=== PATIENT | male | born 1930 | race Caucasian/White ===

== ENCOUNTER → 2018-05-12 | Outpatient (CLI) | payer MEDICARE ==
[~2018-05-12] MED LIST: ATORVASTATIN CA40 MG PO; COUMADIN5 MG PO; METOPROLOL TAR100 MG PO; POTASSIUM CHLO20 ME1 PO; TORSEMIDE20 MG PO
--- NOTE | 2018-05-12 10:03 | Diagnostic Imaging Report ---
PROCEDURE:CHEST 2 VIEWS TECHNIQUE:PA and lateral chest totaling 3 radiographs INDICATION:Hypertensive heart disease; chronic kidney disease. COMPARISON:None. FINDINGS: Blunting of the right costophrenic sulcus. Marked cardiomegaly with postoperative sequela of sternotomy, CABG and valve replacement. Normal central vasculature. Bilateral calcified pleural plaque. Intact skeleton. CONCLUSION: 1. Severe cardiomegaly without pulmonary edema. 2. Right costophrenic angle blunting consistent with pleural thickening. 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 Consider CT chest with contrast to evaluate for right pleural mass/mesothelioma. Differential diagnosis includes loculated pleural effusion or benign pleural thickening. Dictated by: Homer Cowan M.D. on 05/12/2018 at 10:06 Electronically approved by: Homer Cowan M.D. on 05/12/2018 at 10:06
== END ==
LOC: RAD 09:28
PROVIDERS: ATTEND Family Medicine
DX: I48.91 Unspecified atrial fibrillation (principal); I13.0 Hypertensive heart and chronic kidney disease with heart failure and stage 1 through stage 4 chronic kidney disease, or unspecified chronic kidney disease
CPT/HCPCS: 71046

== ENCOUNTER → 2018-05-19 | Outpatient (CLI) | payer MEDICARE ==
[2018-05-19 14:29] LABS: CREATININE, SERUM 1.89 mg/dL (0.72-1.25)
--- NOTE | 2018-05-19 17:42 | Diagnostic Imaging Report ---
EXAM: CT Chest WITHOUT contrast 05/19/2018 1:28 PM INDICATION: Abnormal chest x-ray with concern for right pleural mass/mesothelioma. COMPARISON: None TECHNIQUE: Chest was scanned utilizing a multidetector helical scanner from the lung apex through the level of the adrenal glands without administration of IV contrast. Absence of intravenous contrast decreases sensitivity for detection of lymphadenopathy and vascular pathology. Coronal and sagittal reformations were obtained. Routine protocol was performed. IV CONTRAST: None RADIATION DOSE: Total DLP: 470.31 mGy*cm Estimated effective dose: (DLP x 0.014 x size factor) mSv COMPLICATIONS: None FINDINGS: LINES/ TUBES: None. 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 Maximal thickness including calcification is 4.7 cm at 8:00 position. No evidence of chest wall invasion. Right basilar pleural-parenchymal scarring. PLEURA: Bilateral calcified pleural plaques suggestive of prior cyst versus exposure. HEART AND MEDIASTINUM: The thyroid gland is normal. No mediastinal, hilar or axillary lymphadenopathy. The heart is moderately to markedly enlarged. There is no pericardial effusion. Atherosclerotic calcifications of the thoracic aorta without aneurysmal dilatation. Severe multivessel coronary artery calcification. 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 The central pulmonary arteries are enlarged with the pulmonary trunk measuring 3.7 cm in diameter, suggesting the presence of pulmonary hypertension. UPPER ABDOMEN: Limited non-contrast views of the upper abdomen show atherosclerotic calcifications of the aorta and splenic artery.. The adrenal glands are normal. BONES: Median sternotomy wires. Multilevel degenerative disc disease of the thoracic spine with small Schmorl nodes at some levels. SOFT TISSUES: Unremarkable. IMPRESSION: 1. Findings concerning for mesothelioma in the posterolateral inferior right hemithorax not further characterized due to the lack of contrast. No definite chest wall invasion allowing for limitations of the exam. If renal function permits, consider further evaluation with CT chest mesothelioma protocol. Recommend consultation with thoracic surgery. 2. 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 3. Moderate to marked cardiomegaly. Signed by: Dr. Danielle Michael M.D. on 05/19/2018 5:39 PM
== END | disposition home or self-care (01) ==
LOC: CT 13:12
PROVIDERS: ATTEND Family Medicine
DX: J94.9 Pleural condition, unspecified (principal); J92.0 Pleural plaque with presence of asbestos
CPT/HCPCS: 36415; 71250; 82565; 84520

== ENCOUNTER 2021-05-25 16:25 | Inpatient (IN) | payer MEDICARE ==
[~2021-05-25] VITALS: Ht 182.9 cm; Wt 80.7 kg
[2021-05-25 16:57] LABS: BASOPHILS % 0.3 % (0.0-1.0); EOSINOPHILS # (AUTO) 0.1 (0.0-0.4); EOSINOPHILS % 2.9 % (0.0-6.0); HEMATOCRIT 27.3 % (38.2-49.6); HEMOGLOBIN 8.8 g/dL (14.0-18.0); LYMPHOCYTES # (AUTO) 1.1 (1.0-3.2); LYMPHOCYTES % 33.8 % (18.0-39.1); MEAN CORPUSCULAR HEMOGLOBIN 33.1 pg (28-32); MEAN CORPUSCULAR HGB CONC 32.2 g/dL (31-35); MEAN CORPUSCULAR VOLUME 102.6 fL (81-99); MONOCYTES # (AUTO) 0.1 (0.2-0.8); MONOCYTES % 3.5 % (4.4-11.3); NEUTROPHILS # (AUTO) 1.9 (2.1-6.9); NEUTROPHILS % 58.9 % (38.7-80.0); PLATELET COUNT 140 x10e3/uL (140-360); RED BLOOD COUNT 2.66 x10e6/uL (4.3-5.7); RED CELL DISTRIBUTION WIDTH 14.2 % (11.7-14.4)
[2021-05-25 17:01] LABS: CLARITY,URINE CLEAR (CLEAR); COLOR,URINE YELLOW (YELLOW); KETONES,URINE NEGATIVE (NEGATIVE); LEUKOCYTE ESTERASE ,URINE NEGATIVE (NEGATIVE); NITRITE,URINE NEGATIVE (NEGATIVE); PROTEIN,URINE DIPSTICK NEGATIVE (NEGATIVE); URINE UROBILINOGEN 0.2 mg/dL (0.2 - 1)
[2021-05-25 17:12] LABS: BACTERIA,URINE MANY /HPF
[2021-05-25 17:22] LABS: ALBUMIN 3.6 g/dL (3.5-5.0); ALBUMIN/GLOBULIN RATIO 1.2 (0.8-2.0); ANION GAP 12.8 mmol/L (8-16); CALCIUM 8.9 mg/dL (8.4-10.2); CREATINE KINASE MB 3.4 ng/mL (0-5.0); CREATININE, SERUM 2.83 mg/dL (0.72-1.25)
[2021-05-25 17:28] LABS: POTASSIUM 5.8 mmol/L (3.5-5.1)
[2021-05-25] MEDS ORDERED: ELIQUIS2.5 MG PO (18:01)
[2021-05-25] MEDS ORDERED: ATORVASTATIN CA80 MG PO (18:02)
[2021-05-25] MEDS ORDERED: HYDRALAZINE HCL50 MG (18:02)
[2021-05-25] MEDS ORDERED: METOPROLOL SUC100 MG PO (18:02)
[2021-05-25] MEDS ORDERED: LISINOPRIL5 MG PO (18:02)
[2021-05-25] MEDS ORDERED: SODIUM BICARBONATE 8.4% INJ 50 ML SYR IV STA (18:51)
[2021-05-25] MEDS ORDERED: CALCIUM CHLORIDE 10% 1.36 MEQ/ML 10ML SYR IV STA (18:51)
[2021-05-25] MEDS ORDERED: DEXTROSE 50% SYRINGE 50 ML IV STA (18:51)
[2021-05-25] MEDS ORDERED: SOD POLYSTYRENE SULFONATE SUSP 15 GM/60 ML BTL PO ONE (19:00)
[2021-05-25] MEDS ORDERED: INSULIN REGULAR, HUMAN 100 UNIT/1 ML IV ONE (19:00)
[2021-05-25] MEDS ORDERED: ONDANSETRON HCL INJ 2MG/ML 2ML 2 MG/ML VIAL IV PRN (19:15)
[2021-05-25] MEDS ORDERED: SODIUM CHLORIDE 0.9% 1000ML 1,000 ML IV ONE (19:15)
[2021-05-25] MEDS ORDERED: SODIUM CHLORIDE 0.9% IV ONE (19:30)
[2021-05-25] MEDS ORDERED: CALCIUM CHLORIDE IV ONE (19:30)
[2021-05-25 21:00] VITALS: BP 110/47
[2021-05-25 22:30] VITALS: BP 110/47
[2021-05-25 22:45] VITALS: BP 109/45
[2021-05-26] VITALS (8 sets, daily range): BP systolic 96–160; BP diastolic 39–89
[2021-05-26 04:54] LABS: BASOPHILS % 0.4 % (0.0-1.0); EOSINOPHILS # (AUTO) 0.1 (0.0-0.4); HEMATOCRIT 27.1 % (38.2-49.6); HEMOGLOBIN 8.7 g/dL (14.0-18.0); LYMPHOCYTES # (AUTO) 0.7 (1.0-3.2); MEAN CORPUSCULAR HEMOGLOBIN 33.5 pg (28-32); MEAN CORPUSCULAR HGB CONC 32.1 g/dL (31-35); MEAN CORPUSCULAR VOLUME 104.2 fL (81-99); MONOCYTES # (AUTO) 0.1 (0.2-0.8); MONOCYTES % 4.5 % (4.4-11.3); NEUTROPHILS # (AUTO) 1.8 (2.1-6.9); NEUTROPHILS % 65.7 % (38.7-80.0); PLATELET COUNT 125 x10e3/uL (140-360)
[2021-05-26 05:31] LABS: ALBUMIN 3.3 g/dL (3.5-5.0); ALBUMIN/GLOBULIN RATIO 1.1 (0.8-2.0); ANION GAP 13.9 mmol/L (8-16); CALCIUM 9.1 mg/dL (8.4-10.2); CREATININE, SERUM 2.4 mg/dL (0.72-1.25); POTASSIUM 4.9 mmol/L (3.5-5.1)
[2021-05-26] MEDS: SODIUM CHLORIDE 0.9% 1000ML 1,000 ML IV SCH ×2 (06:45→15:00)
[2021-05-26] MEDS ORDERED: POTASSIUM CHLO20 ME1 PO (11:57)
[2021-05-26 12:16] LABS: CREATINE KINASE MB 3.8 ng/mL (0-5.0)
[2021-05-26] MEDS ORDERED: TORSEMIDE 10 MG TAB PO SCH (13:00)
[2021-05-26] MEDS ORDERED: LISINOPRIL 2.5 MG TAB PO SCH (17:00)
[2021-05-26] MEDS: APIXAB 2.5 MG TABLET PO SCH (18:54)
[2021-05-26] MEDS: ATORVASTATIN 40 MG TAB PO SCH (22:33)
[2021-05-27] VITALS (7 sets, daily range): BP systolic 104–125; BP diastolic 47–63
[2021-05-27] MEDS: SODIUM CHLORIDE 0.9% 1000ML 1,000 ML IV SCH ×3 (05:40→20:02)
[2021-05-27] MEDS: LORAZEPAM INJ 2 MG/ML VIAL IV PRN ×2 (06:48→20:02)
[2021-05-27 08:02] LABS: CALCIUM 9.1 mg/dL (8.4-10.2); CREATININE, SERUM 1.71 mg/dL (0.72-1.25)
[2021-05-27 08:25] LABS: CREATINE KINASE MB 4.5 ng/mL (0-5.0)
[2021-05-27] MEDS ORDERED: METOPROLOL SUCCINATE 50 MG PO SCH (09:00)
[2021-05-27] MEDS ORDERED: NON-FORMULARY MEDICATION (Atorvastatin Calcium 80 MG) PO SCH (09:00)
[2021-05-27] MEDS: APIXAB 2.5 MG TABLET PO SCH ×2 (10:56→17:29)
[2021-05-27] MEDS: METOPROLOL SUCCINATE 50 MG TAB XL PO SCH (10:56)
[2021-05-27] MEDS: ATORVASTATIN 40 MG TAB PO SCH (20:02)
[2021-05-28] VITALS (9 sets, daily range): BP systolic 107–120; BP diastolic 42–58
[2021-05-28] MEDS: LORAZEPAM INJ 2 MG/ML VIAL IV PRN ×2 (03:30→22:30)
[2021-05-28] MEDS: HALOPERIDOL LACTATE 5 MG/ML VIAL IV PRN ×2 (05:49→19:49)
[2021-05-28 06:24] LABS: ANION GAP 13.2 mmol/L (8-16); CREATININE, SERUM 1.43 mg/dL (0.72-1.25); POTASSIUM 4.2 mmol/L (3.5-5.1)
[2021-05-28] MEDS: APIXAB 2.5 MG TABLET PO SCH ×2 (09:20→17:30)
[2021-05-28] MEDS: SODIUM CHLORIDE 0.9% 1000ML 1,000 ML IV SCH (09:20)
[2021-05-28] MEDS: METOPROLOL SUCCINATE 50 MG TAB XL PO SCH (09:21)
[2021-05-28] MEDS: LACTATED RINGER'S 1,000 ML INJ SCH (16:20)
[2021-05-28 16:24] LABS: ANION GAP 14.3 mmol/L (8-16); CREATININE, SERUM 1.38 mg/dL (0.72-1.25); POTASSIUM 4.3 mmol/L (3.5-5.1)
[2021-05-28] MEDS: ATORVASTATIN 40 MG TAB PO SCH (20:59)
[2021-05-29] VITALS (8 sets, daily range): BP systolic 97–115; BP diastolic 46–64
[2021-05-29] MEDS ORDERED: B&O 60MG R/S 60 MG SUPP PR ONE (07:09)
[2021-05-29] MEDS: APIXAB 2.5 MG TABLET PO SCH ×2 (09:17→17:00)
[2021-05-29] MEDS: METOPROLOL SUCCINATE 50 MG TAB XL PO SCH (09:18)
[2021-05-29] MEDS: LORAZEPAM INJ 2 MG/ML VIAL IV PRN ×2 (12:29→21:19)
[2021-05-29] MEDS: LACTATED RINGER'S 1,000 ML INJ SCH ×3 (14:05→20:54)
[2021-05-30] VITALS (8 sets, daily range): BP systolic 109–146; BP diastolic 33–72
[2021-05-30] MEDS: LACTATED RINGER'S 1,000 ML INJ SCH ×2 (07:00→17:00)
[2021-05-30] MEDS: LORAZEPAM INJ 2 MG/ML VIAL IV PRN (12:38)
[2021-05-31 00:31] VITALS: BP 100/59
[2021-05-31] MEDS: LACTATED RINGER'S 1,000 ML INJ SCH (03:00)
[2021-05-31 05:24] VITALS: BP 108/68
[2021-05-31 05:33] LABS: ANION GAP 16.8 mmol/L (8-16); CALCIUM 9.3 mg/dL (8.4-10.2); CREATININE, SERUM 2.47 mg/dL (0.72-1.25); POTASSIUM 4.8 mmol/L (3.5-5.1)
[2021-05-31 08:00] VITALS: BP 108/68
[2021-05-31 08:08] VITALS: BP 103/81
== END 2021-05-31 10:29 | disposition hospice, inpatient (51) | DRG 683 ==
LOC: ER 18:59 → ERHOLD 19:18 → MED/SURG2 20:51
DX: N17.9 Acute kidney failure, unspecified (principal); E87.2 Acidosis; R64 Cachexia; E87.5 Hyperkalemia; I48.91 Unspecified atrial fibrillation; D64.9 Anemia, unspecified; I25.10 Atherosclerotic heart disease of native coronary artery without angina pectoris; I50.9 Heart failure, unspecified; Z95.1 Presence of aortocoronary bypass graft; Z68.24 Body mass index [BMI] 24.0-24.9, adult; N18.9 Chronic kidney disease, unspecified; E86.0 Dehydration; T50.1X5A Adverse effect of loop [high-ceiling] diuretics, initial encounter; R79.89 Other specified abnormal findings of blood chemistry; Z91.81 History of falling; Z88.5 Allergy status to narcotic agent; Z88.0 Allergy status to penicillin
CPT/HCPCS: 36415; 51700; 70450; 71045; 76770; 80048; 80053; 81001; 82550; 82553; 83735; 84484; 85025; 93005; 96361; 99251; 99284; J1630; J1817; J2060; J7030; J7121; J7799; U0002